=== PATIENT | female | born 1950 | race Caucasian/White ===

== ENCOUNTER 2021-03-23 09:25 | Day surgery (SDC) | payer MEDICARE, OTHER ==
[~2021-03-23] VITALS: Ht 170.2 cm; Wt 90.2 kg
[~2021-03-23 09:25] MED LIST: CAL-CITRATE PL1 EACH PO; GINKGO60 MG PO; K-TAB ER20 MEQ PO; MAGNESIUM500 MG PO; NORCO 5-325 TA1 EACH PO; TIROSINT13 MCG PO; VITAMIN E OIL-V52 M1 TOP
--- NOTE | 2021-03-23 10:58 | NUR ---
PATIENT RESTING IN BED AWAITING SURGERY. REPORTS BEING WARM ENOUGH AND DENIES NEEDS AT THIS TIME. CALL LIGHT IN REACH.
--- NOTE | 2021-03-23 16:06 | NUR ---
PATIENT ARRIVED BACK FROM PACU AT 1550. HAS BEEN UP TO THE RESTROOM. IS CURRENTLY EATING AND DRINKING. AWAKE AND ALERT. DENIES PAIN WHEN NOT VOIDING. CALL LIGHT WITHIN REACH. NO OTHER NEEDS AT THIS TIME.
--- NOTE | 2021-03-23 16:16 | NUR ---
03/23/21 1616 Paola Fowler 1518 PT ARRIVED IN PACU SLEEPY WITH NO C/O'S. 1530 PT AWAKE SITTING UP IN BED TALKING TO STAFF. NO C/O'S. 1534 TORADOL 15MG GIVEN IVP PER ORDERS. 1550 TO DS. UP TO BATHROOM WITH ONE PERSON ASSIST. VOIDED. BACK IN ROOM SIPPING ON WATER. REPORT GIVEN TO RN/SN.
--- NOTE | 2021-03-23 16:50 | NUR ---
PROVIDED PATIENT WITH DISCHARGE INSTRUCTION. PATIENT VERBALIZED UNDERSTANDING. PROVIDED WHEELCHAIR RIDE TO FRONT.
--- NOTE | 2021-03-24 07:42 | OR ---
[facility] [address] [facility] [place], [place] [address] Signed DATE OF OPERATION: 03/23/2021 SURGEON: Gillian Mon MD PREOPERATIVE DIAGNOSIS: 5 mm distal left ureteral calculus. POSTOPERATIVE DIAGNOSIS: 5 mm distal left ureteral calculus. NAMES OF PROCEDURES: 1. Urethral dilation using sounds. 2. Diagnostic cystoscopy with left retrograde pyelogram. 3. Left semi-rigid ureteroscopy with laser lithotripsy and basket extraction of stone fragments. ANESTHESIA: General. ESTIMATED BLOOD LOSS: Minimal. COMPLICATIONS: None. SPECIMENS: Stone fragments sent to the lab for stone analysis. DRAINS: None. INDICATIONS FOR PROCEDURE: Ms. Uribe is a very pleasant 70-year-old female who presented to my clinic a couple of weeks ago with a multi week history of left flank abdominal discomfort. She was sent in referral from her primary care physician, Dr. Castro. She recently underwent a CT scan after presenting to Dr. Castro with abdominal and flank discomfort. The CT scan revealed a partially obstructing 5 mm distal left ureteral calculus. After discussion of the risks and benefits, the patient elected to undergo ureteroscopic extraction of her stone. Electronically Signed By: GILLIAN MON MD 03/24/21 0742 PATIENT NAME: ADRIENNE URIBE OPERATIVE REPORT DATE OF : 54 REPORT #: [id number] PHYSICIAN: GILLIAN MON MD PCP: MICAH CASTRO DO REPORT IS CONFIDENTIAL AND NOT TO BE RELEASED WITHOUT AUTHORIZATION [facility] [address] [place], [place] [address] Signed OPERATIVE FINDINGS: 1. Visual inspection of the external genitalia reveals very mild urethral stenosis. I do not consider this an overt abnormality, just a diminutive urethral meatus. 2. Left retrograde pyelogram revealed that the 5 mm stone was present in the transmural portion of the left distal ureter. The left ureteral orifice was also noted to be quite diminutive. 3. Left diagnostic semi-rigid ureteroscopy revealed the presence of the stone caught on a small lip of tissue within the transmural portion of the left distal ureter. The stone was fragmented using a 270 micron fiber and a holmium laser at 8 and 0.8 settings without difficulty. 4. A Zero tip basket was used to extract the stone fragments from the ureter without difficulty. Of note, there was no evidence of any stone impaction or stricture noted in the area. Therefore, the decision was made to not place an indwelling ureteral stent. DESCRIPTION OF PROCEDURE: After informed consent was obtained, the patient was taken back to the operating room. She was transferred from the [facility] to the operating room where general anesthesia was induced. She was placed in the dorsal lithotomy position and her genitalia were prepped and draped in a standard sterile fashion. Using a 30-degree lens on a 22.5-Bengali introducer, rigid cystoscope was inserted through the urethra and into her bladder under direct visualization. Panendoscopic views of the bladder were then obtained. Please see above findings. Prior to this, I did note on exam that her urethral meatus was somewhat diminutive. The decision was made to dilate her urethra from 14-Bengali to 24-Bengali using sounds. This was performed without difficulty. Once inside the bladder, a thorough diagnostic cystoscopy was performed. Please see above findings. Attention was turned to the left ureteral orifice. A cone-tipped catheter was advanced to the level of the left ureteral orifice and a left retrograde pyelogram was performed. Please see above findings. I removed the cystoscope and advanced a semi-rigid ureteroscope into the distal left ureter. The stone was noted immediately within the transmural portion of the ureter, approximately 2 cm from the left ureteral orifice. The stone was fragmented using a holmium laser at 8 and 0.8 settings. The stone fragmented quite easily. 100% of the stone fragments were extracted from the ureter using a Zero tip basket without difficulty. I then repeated a left retrograde pyelogram to be sure there were no additional filling defects within the ureter. The stone fragments were irrigated from the patient's bladder using the cystoscope. These were then placed in a specimen cup to be sent to the lab for stone analysis. The patient's bladder was then drained and the cystoscope was removed. The procedure was then terminated. The patient tolerated the procedure well without any complication. She will now be transferred to the postanesthesia care unit in stable condition. DISPOSITION: I discussed the details of today's procedure with the patient once she awoke from Electronically Signed By: GILLIAN MON MD 03/24/21 0742 PATIENT NAME: ADRIENNE URIBE OPERATIVE REPORT DATE OF : 54 REPORT #: [id number] PHYSICIAN: GILLIAN MON MD PCP: MICAH CASTRO DO REPORT IS CONFIDENTIAL AND NOT TO BE RELEASED WITHOUT AUTHORIZATION [address] [address] Signed general anesthetic. She will be sent home today once she is fully awake and is tolerating p.o. intake. She was given oxycodone 5 mg one-half tablet p.o. q.4 hours p.r.n. pain, as well as Cipro 500 mg p.o. b.i.d. for a total of 5 days for antibiotic prophylaxis. She will be scheduled to return to clinic in two months for a postoperative visit to discuss the results of her stone analysis. Again, no indwelling ureteral stent was placed today. MD ISABEL Hurtado/JEFFREYL /[id number] Copies: ~ Electronically Signed By: GILLIAN MON MD 03/24/21 0742 PATIENT NAME: ADRIENNE URIBE OPERATIVE REPORT DATE OF : 54 REPORT #: [id number] PHYSICIAN: GILLIAN MON MD PCP: MICAH CASTRO DO REPORT IS CONFIDENTIAL AND NOT TO BE RELEASED WITHOUT AUTHORIZATION
== END 2021-03-23 16:50 | disposition home or self-care (01) ==
LOC: OPS 09:25 → DS 09:25 → OPS 10:30
PROVIDERS: ATTEND Urology
PROC: 0TC78ZZ Extirpation of Matter from Left Ureter, Via Natural or Artificial Opening Endoscopic (ICD-10-PCS; principal; 2021-03-23 10:30)
DX: N20.1 Calculus of ureter (principal); E03.9 Hypothyroidism, unspecified; I10 Essential (primary) hypertension; K21.9 Gastro-esophageal reflux disease without esophagitis
CPT/HCPCS: 00918; 74420; 82365; C1769; J0690; J1100; J1885; J2001; J2405; J2704; J3010; J7121; Q9967